=== PATIENT | female | born 1985 | race Caucasian/White ===

== ENCOUNTER 2016-08-10 23:04 | Emergency (ER) ==
[2016-08-10 23:31] VITALS: BP 148/87
[2016-08-11 00:03] LABS: MANUAL DIFF NEEDED? NO
[2016-08-11 00:15] LABS: BASO% 0.3 % (0.0-0.8); EOS# 0.29 X1000 (0.0-0.7); EOS% 2.2 % (0.0-10.0); HEMATOCRIT 39.1 % (37.0-47.0); HEMOGLOBIN 13.9 g/dL (12.0-16.0); IMM GRAN# 0.02 X1000 (0.0-0.04); IMM GRAN% 0.2 % (0.0-0.5); LYMPH# 2.71 X1000 (1.2-3.4); LYMPH% 20.6 % (20.5-51.1); MCH 32.4 PG (27-31); MCHC 35.5 g/dL (33-37); MCV 91.1 FL (81-99); MONO# 1.01 X1000 (0.11-0.59); MONO% 7.7 % (1.7-9.3); MPV 10.5 FL (7.4-10.4); PLT 346 X1000 (130-400); RBC 4.29 XMIL (4.2-5.4)
[2016-08-11] MEDS ORDERED: PHENERGAN IM ONE (00:17)
[2016-08-11] MEDS ORDERED: ATIVAN IM ONE (00:17)
[2016-08-11] MEDS ORDERED: DILAUDID IM ONE (00:17)
--- NOTE | 2016-08-11 00:22 | PROVIDER DOCUMENTATION ---
HPI-General Adult - General Chief Complaint: Weakness Stated Complaint: GALLSTONE SX Time Seen by Provider: 08/10/16 23:36 Allergies/Adverse Reactions: Patient Allergies Allergy/AdvReac Type Severity Reaction Status Date / Time No Known Allergies Allergy Verified 07/30/16 20:22 Home Medications: Venlafaxine E.r. [Effexor Xr] 75 mg PO DAILY 06/20/16 Erythromycin Base [Erythromycin] 250 mg PO TID 07/28/16 - History of Present Illness -Gen Adult Nature of Presenting Problems: 31 YOWF PRESENTS TO ED WITH C/O PT STATES RUQ TENDERNESS. PT STATES 1 EPISODE OF VOMITING LAST NIGHT. PT STATES SHE HAS A COUGH. PT STATES SHE FEELS BAD AND APPEARS MILDLY ANXIOUS. Location of Pain/Injury: reports: abdomen Pain Radiation: reports: no radiation Quality of Pain: reports: aching Severity: reports: mild Onset/Duration: reports: 2 days ago Timing: reports: still present Context/Activities at Onset: reports: light activity Modifying Factors: improves with: nothing Similar Symptoms Previously?: Yes Recently seen or treated by another doctor?: Yes Review of Systems - Adult - REVIEW OF SYSTEMS - ADULT Constitutional: denies: chills, fever Cardiovascular: denies: chest pain, palpitations, syncope Respiratory: reports: cough. denies: shortness of breath, wheezing Gastrointestinal: reports: abdominal pain, nausea, vomiting. denies: diarrhea Musculoskeletal: denies: back pain, neck pain Neurological: denies: dizziness/vertigo, headache/migraines, syncope Past History - Adult - PAST MEDICAL HISTORY-ADULT Review of Records: reports: Nursing Assessment Review, Medications Reviewed Gastrointestinal: reports: other (gastroparesis) Psychiatric: reports: anxiety, depression - PRIOR SURGERIES/PROCEDURES Surgical/Procedure History: reports: hysterectomy (partial), BTL, other - IMMUNIZATION STATUS Childhood Immunizations: See Nurse Assessment Flu Vaccine: See Nurse Assessment - FAMILY HISTORY Family History: reviewed, not pertinent - SOCIAL HISTORY Smoking: cigarettes, less than 1 pack/day Provider spent 3-5 mins advising pt. on dangers of tobacco.: Discussed manners to quit use, and f/u contacts for add'l counseling. Substance Use: denies Alcohol Use Frequency: never Living Situation: family Physical Exam-General - CONSTITUTIONAL General Appearance: alert, mild distress - EYES Eyes: PERRL/EOMI, pink conjunctivae - HEAD, EARS, NOSE, MOUTH & THROAT HENMT: normocephalic/atraumatic, moist mucous membranes - NECK Neck: non-tender, full range of motion, supple - RESPIRATORY Respiratory: chest non-tender, lungs clear, normal breath sounds - CARDIOVASCULAR Cardiovascular: normal peripheral pulses, tachycardia - GASTROINTESTINAL (ABDOMEN) Abdominal Exam: normal bowel sounds, soft, tenderness (RUQ) - LYMPHATIC Lymphatic: no adenopathy - MUSCULOSKELETAL Back Exam: normal inspection, no CVA tenderness, no vertebral tenderness Extremity: normal range of motion, non-tender Departure - Departure Time of Disposition Order: 00:51 DIAGNOSIS: Biliary colic, Anxiety Disposition: HOME 01 Certified Medical Emergency: Emergent Condition: Stable Additional Instructions: ED Follow Up Instructions: You have been treated by a care provider in the Emergency Department. These instructions are being provided to you so you can have an understanding of how to care for yourself upon discharge. Upon discharge from the Emergency Department, you are responsible for making arrangements for follow-up care by a physician of your choice. Take all prescribed medications as directed. Return to the Emergency Department immediately for any new or worsening symptoms. You may call the Physician Referral phone number at [phone] to obtain a list of Physicians who are taking new patients. Attestation - Scribe Verification/Attestation Scribe:: Jorge Alberto Hsieh Acting as Scribe for:: Neal Teresa Scribe documention review:: This chart was documented by a scribe and accurately reflects the service the provider performed and the decisions made by the provider.
[2016-08-11 00:43] LABS: AGAP 11; ALBUMIN 4.6 g/dL (3.5-5.0); ALKALINE PHOSPHATASE 70 U/L (32-104); BUN 7 mg/dL (8-22); CALCIUM 9.4 mg/dL (8.8-10.2); CHLORIDE 102 mmol/L (98-107); COSMO 275; GOT 11 U/L (10-30); GPT 12 U/L (10-36); LIPASE 22 U/L (13-60); POTASSIUM 3.7 mmol/L (3.5-5.1); SODIUM 139 mmol/L (136-145); TCO2 26 mmol/L (25-35); TOTAL PROTEIN 7.7 g/dL (6.3-8.3)
== END 2016-08-11 01:17 | disposition home or self-care (01) ==
LOC: P.ED 23:04
DX: K80.50 Calculus of bile duct without cholangitis or cholecystitis without obstruction (principal); F41.9 Anxiety disorder, unspecified; R10.11 Right upper quadrant pain; R00.0 Tachycardia, unspecified; R11.2 Nausea with vomiting, unspecified; R05 Cough; K31.84 Gastroparesis; F32.9 Major depressive disorder, single episode, unspecified; F17.210 Nicotine dependence, cigarettes, uncomplicated; Z71.6 Tobacco abuse counseling; Z79.899 Other long term (current) drug therapy
CPT/HCPCS: 80053; 83690; 85025; 96372; J1170; J2060; J2550

== ENCOUNTER 2016-08-13 11:25 | Emergency (ER) ==
--- NOTE | 2016-08-13 12:52 | PROVIDER DOCUMENTATION ---
HPI-Cardiac General <Tania EngleTiffany - Last Filed: 08/13/16 12:52> - General Source: patient - History of Present Illness-Cardiac Quality of Pain: reports: none Severity in ED: moderate Onset/Duration: 24 hours ago Timing: still present Palpitation Quality: fast/pounding heart beat Similar Symptoms Previously?: Yes Recently Seen Here or By Another Healthcare Provider: Yes <Vladimir Serna - Last Filed: 08/13/16 14:15> - General Chief Complaint: Palpitations Stated Complaint: ABD PAIN/PALPITATION Time Seen by Provider: 08/13/16 12:51 Allergies/Adverse Reactions: Patient Allergies Allergy/AdvReac Type Severity Reaction Status Date / Time No Known Allergies Allergy Verified 07/30/16 20:22 Home Medications: Venlafaxine E.r. [Effexor Xr] 75 mg PO DAILY 06/20/16 Erythromycin Base [Erythromycin] 250 mg PO TID 07/28/16 - History of Present Illness-Cardiac Nature of Presenting Problem: Reports having gallbladder surgery on Thursday and states continues to feel a fluttering in her chest reports she thinks it correlates with the gallbladder states she is nervous about the surgery. Reports has pain medication but doesn' t take it. Reports has had an EKG,STress test and wore a halter monitor with all negative results. Mel arvizu,n,v,d,sob. (Vladimir Serna) Review of Systems - Adult - REVIEW OF SYSTEMS - ADULT Constitutional: denies: chills, fever, fatique Eyes: reports: no symptoms reported Ears, Nose, Mouth & Throat: reports: no symptoms reported Cardiovascular: reports: palpitations. denies: chest pain, irregular heart rate , orthopnea, PND, syncope Respiratory: denies: cough, shortness of breath, wheezing Gastrointestinal: reports: no symptoms reported Genitourinary: reports: no symptoms reported Musculoskeletal: reports: no symptoms reported Integumentary: reports: no symptoms reported Neurological: reports: no symptoms reported Psychiatric: reports: no symptoms reported Endocrine: reports: no symptoms reported Hematologic/Lymphatic: reports: no symptoms reported Allergic/Immunologic: reports: no symptoms reported All Other Systems: Reviewed and Negative <Vladimir Serna - Last Filed: 08/13/16 14:15> Past History - Adult - PAST MEDICAL HISTORY-ADULT Gastrointestinal: reports: other (gastroparesis) Psychiatric: reports: anxiety, depression - PRIOR SURGERIES/PROCEDURES Surgical/Procedure History: reports: hysterectomy (partial), BTL, other - IMMUNIZATION STATUS Childhood Immunizations: See Nurse Assessment Flu Vaccine: See Nurse Assessment - FAMILY HISTORY Family History: reviewed, not pertinent <Tania Engle - Last Filed: 08/13/16 12:52> - PAST MEDICAL HISTORY-ADULT Review of Records: reports: Nursing Assessment Review Major Childhood Illnesses: reports: denies history Cardiovascular: reports: denies history Respiratory: reports: denies history Gastrointestinal: reports: other (gastroparesis) Psychiatric: reports: depression - PRIOR SURGERIES/PROCEDURES Surgical/Procedure History: reports: hysterectomy, BTL - IMMUNIZATION STATUS Childhood Immunizations: See Nurse Assessment Flu Vaccine: See Nurse Assessment - FAMILY HISTORY Family History: reviewed, not pertinent - SOCIAL HISTORY Smoking: cigarettes, less than 1 pack/day Provider spent 3-5 mins advising pt. on dangers of tobacco.: Discussed manners to quit use, and f/u contacts for add'l counseling. Substance Use: none/never <Vladimir Serna - Last Filed: 08/13/16 14:15> Physical Exam-General - PHYSICAL EXAM-ADULT Initial Vital Signs Reviewed: Yes - CONSTITUTIONAL General Appearance: appears well, alert, no apparent distress, anxious - EYES Eyes: PERRL/EOMI, pink conjunctivae - HEAD, EARS, NOSE, MOUTH & THROAT HENMT: normocephalic/atraumatic, moist mucous membranes, normal ENT inspection - NECK Neck: non-tender, full range of motion, normal inspection - RESPIRATORY Respiratory: chest non-tender, lungs clear, normal breath sounds - CARDIOVASCULAR Cardiovascular: normal peripheral pulses, regular rate, rhythm, no edema - GASTROINTESTINAL (ABDOMEN) Abdominal Exam: normal bowel sounds, non tender, soft - LYMPHATIC Lymphatic: no adenopathy - MUSCULOSKELETAL Back Exam: normal inspection, no CVA tenderness, no vertebral tenderness Extremity: normal range of motion, non-tender, normal gait - SKIN Integumentary: normal color, normal turgor, warm/dry - NEUROLOGIC Neurologic: grossly normal, no motor/sensory deficits - PSYCHIATRIC Psych/Mental Status: normal thought content, normal thought process, oriented x 3, anxious <Vladimir Serna - Last Filed: 08/13/16 14:15> Progress <Tania Engle - Last Filed: 08/13/16 12:52> - EKG 1 Time of EKG reading by physician:: 12:32 EKG Read and Signed by:: Robert Rhoades EKG Interpretation (*Must complete 3 of following elements*): Abnormal Rate: 103 Rhythm: sinus tachy [place]: normal QRS: normal [place] Interval: normal ST Wave: normal <Vladimir Serna - Last Filed: 08/13/16 14:15> - PLAN OF CARE/RESULTS Progress/Plan/Lab Results: MSE completed, stable (Tania Engle) Orders Category Date Time Status NPO Diet 08/13/16 12:10 Active AMYLASE [CHEM] Stat Lab 08/13/16 13:00 Completed CBC WITH ELECTRONIC DIFF [HEME] Stat Lab 08/13/16 13:00 Completed COMPREHENSIVE METABOLIC PANEL [CHEM] Stat Lab 08/13/16 13:00 Completed LIPASE [CHEM] Stat Lab 08/13/16 13:00 Completed TEST-URINE [PREG] Stat Lab 08/13/16 12:[address] W/POSS RFLX CULT [URINALYSIS] Stat Lab 08/13/16 12:53 Completed URINE CULTURE [RM] Routine Lab 08/13/16 13:35 Ordered EKG [EKG] Stat Ther 08/13/16 11:33 Draft Vital Signs - 24 hr 08/13/16 08/13/16 11:30 12:44 Temperature 97.8 F 97.4 F L Pulse Rate 99 H 92 H Respiratory 18 16 Rate Blood Pressure 130/69 126/74 O2 Sat by Pulse 100 96 Oximetry Laboratory Tests 08/13/16 08/13/16 08/13/16 12:53 12:53 13:00 WBC RBC Hgb Hct MCV MCH MCHC RDW Std Deviation Plt Count MPV Immature Gran % (Auto) Neut % (Auto) Lymph % (Auto) [place] % (Auto) Eos % (Auto) Baso % (Auto) Immature Gran # (Auto) Neut # (Auto) Lymph # (Auto) [place] # (Auto) Eos # (Auto) Baso # (Auto) Sodium 139 Potassium 3.9 Chloride 102 Carbon Dioxide 27 Anion Gap 10 BUN 8 Creatinine 0.9 Estimated GFR/1.73 m2 > 60 BUN/Creatinine Ratio 9 Glucose 103 Calculated Osmolality 276 Calcium 9.4 Total Bilirubin 0.60 AST 15 ALT 13 Alkaline Phosphatase 75 Total Protein 7.8 Albumin 4.5 Globulin 3.0 Albumin/Globulin Ratio 1.0 Amylase 34 Lipase 20 Urine Source CLEAN CATCH Urine Color YELLOW Urine Clarity SL. CLOUDY A Urine pH 6.5 Ur Specific [place] 1.010 Urine Protein NEGATIVE Urine Ketones NEGATIVE Urine Blood NEGATIVE Urine Nitrite NEGATIVE Urine Bilirubin NEGATIVE Urine Urobilinogen NORMAL Urine Microscopic RBC <10 Urine WBC NEGATIVE Urine Microscopic WBC <10 Ur Epithelial Cells >10 A Urine Bacteria 2+ Urine Glucose NEGATIVE Urine Test NEGATIVE 08/13/16 13:00 WBC 9.62 RBC 4.38 Hgb 14.0 Hct 40.1 MCV 91.6 MCH 32.0 H MCHC 34.9 RDW Std Deviation 12.1 Plt Count 396 MPV 10.1 Immature Gran % (Auto) 0.2 Neut % (Auto) 68.5 Lymph % (Auto) 21.4 [place] % (Auto) 6.4 Eos % (Auto) 2.9 Baso % (Auto) 0.6 Immature Gran # (Auto) 0.02 Neut # (Auto) 6.58 H Lymph # (Auto) 2.06 [place] # (Auto) 0.62 H Eos # (Auto) 0.28 Baso # (Auto) 0.06 Sodium Potassium Chloride Carbon Dioxide Anion Gap BUN Creatinine Estimated GFR/1.73 m2 BUN/Creatinine Ratio Glucose Calculated Osmolality Calcium Total Bilirubin AST ALT Alkaline Phosphatase Total Protein Albumin Globulin Albumin/Globulin Ratio Amylase Lipase Urine Source Urine Color Urine Clarity Urine pH Ur Specific [place] Urine Protein Urine Ketones Urine Blood Urine Nitrite Urine Bilirubin Urine Urobilinogen Urine Microscopic RBC Urine WBC Urine Microscopic WBC Ur Epithelial Cells Urine Bacteria Urine Glucose Urine Test (Vladimir Serna) Departure <Tania Engle - Last Filed: 08/13/16 12:52> - Departure Time of Disposition Order: 14:15 Certified Medical Emergency: Emergent <Vladimir Serna - Last Filed: 08/13/16 14:15> - Departure DIAGNOSIS: Palpitations, Anxiety Disposition: HOME 01 Condition: Stable Additional Instructions: ED Follow Up Instructions: You have been treated by a care provider in the Emergency Department. These instructions are being provided to you so you can have an understanding of how to care for yourself upon discharge. Upon discharge from the Emergency Department, you are responsible for making arrangements for follow-up care by a physician of your choice. Take all prescribed medications as directed. Return to the Emergency Department immediately for any new or worsening symptoms. You may call the Physician Referral phone number at [phone] to obtain a list of Physicians who are taking new patients. Attestation - Physician/ Mid-level Attestation Patient care was provided by Mid-level provider (HUMAN RESOURCES OFFICE MANAGER/PA):: Yes Mid-level provider:: Tania Engle Mid-level documentation review:: The Mid-level provider documentation, treatment plan and medical decision making was reviewed by the physician who agrees with all treatment and medical decision making by the MLP. <Tania Engle - Last Filed: 08/13/16 12:52> - Scribe Verification/Attestation Scribe:: Vladimir Serna Acting as Scribe for:: Robert Rhoades Scribe documention review:: This chart was documented by a scribe and accurately reflects the service the provider performed and the decisions made by the provider. <Vladimir Serna - Last Filed: 08/13/16 14:15> Physician Attestation
[2016-08-13 13:00] LABS: URINE SOURCE CLEAN CATCH
[2016-08-13 13:03] LABS: MANUAL DIFF NEEDED? NO
[2016-08-13 13:10] LABS: BASO% 0.6 % (0.0-0.8); EOS# 0.28 X1000 (0.0-0.7); EOS% 2.9 % (0.0-10.0); HEMATOCRIT 40.1 % (37.0-47.0); IMM GRAN# 0.02 X1000 (0.0-0.04); IMM GRAN% 0.2 % (0.0-0.5); LYMPH# 2.06 X1000 (1.2-3.4); LYMPH% 21.4 % (20.5-51.1); MCHC 34.9 g/dL (33-37); MCV 91.6 FL (81-99); MONO# 0.62 X1000 (0.11-0.59); MONO% 6.4 % (1.7-9.3); MPV 10.1 FL (7.4-10.4); NEUT% 68.5 % (42.2-75.2); PLT 396 X1000 (130-400); RBC 4.38 XMIL (4.2-5.4)
--- NOTE | 2016-08-13 13:12 | EKG Report ---
Test Performed on : 08/13/2016 12:32:20 PM Test Reason : PALP Blood Pressure : / mmHG Vent. Rate : 103 BPM Atrial Rate : 103 BPM P-R Int : 150 ms QRS Dur : 074 ms QT Int : 322 ms P-R-T Axes : 071 070 057 degrees QTc Int : 421 ms Sinus tachycardia. Otherwise normal ECG When compared with ECG of 03-AUG-2016 16:56, No significant change was found Unconfirmed Result
[2016-08-13 13:28] LABS: BILIRUBIN URINE NEGATIVE (NEGATIVE); BLOOD URINE NEGATIVE (NEGATIVE); CLARITY SL. CLOUDY (CLEAR); COLOR YELLOW; GLUCOSE URINE NEGATIVE (NEGATIVE); LEUKOCYTES URINE NEGATIVE (NEGATIVE); NITRITE URINE NEGATIVE (NEGATIVE); PH URINE 6.5; PROTEIN URINE NEGATIVE (NEGATIVE); UROBILINOGEN URINE NORMAL
[2016-08-13 13:35] LABS: URINE CULTURE PL NEEDED? YES; URINE EPITHELIAL CELLS >10 /HPF (<10); URINE RBC <10 /HPF (<10); URINE WBC <10 /HPF (<10)
[2016-08-13 13:35] LABS: AGAP 10; ALBUMIN 4.5 g/dL (3.5-5.0); ALKALINE PHOSPHATASE 75 U/L (32-104); AMYLASE 34 U/L (20-200); BUN 8 mg/dL (8-22); CALCIUM 9.4 mg/dL (8.8-10.2); CHLORIDE 102 mmol/L (98-107); COSMO 276; GOT 15 U/L (10-30); GPT 13 U/L (10-36); LIPASE 20 U/L (13-60); POTASSIUM 3.9 mmol/L (3.5-5.1); SODIUM 139 mmol/L (136-145); TCO2 27 mmol/L (25-35); TOTAL PROTEIN 7.8 g/dL (6.3-8.3)
[2016-08-13 14:44] VITALS: BP 112/78
== END 2016-08-13 14:45 | disposition home or self-care (01) ==
LOC: P.ED 11:25
DX: R00.2 Palpitations (principal); F41.9 Anxiety disorder, unspecified; R94.31 Abnormal electrocardiogram [ECG] [EKG]; F32.9 Major depressive disorder, single episode, unspecified; K31.84 Gastroparesis; F17.210 Nicotine dependence, cigarettes, uncomplicated; Z71.6 Tobacco abuse counseling; Z79.899 Other long term (current) drug therapy
CPT/HCPCS: 36415; 80053; 81001; 81025; 82150; 83690; 85025; 87088; 93005; 99283

== ENCOUNTER 2016-08-14 13:48 | Emergency (ER) ==
[2016-08-14 14:00] LABS: MANUAL DIFF NEEDED? NO
[2016-08-14 14:06] LABS: BASO% 0.5 % (0.0-0.8); EOS# 0.23 X1000 (0.0-0.7); EOS% 2.2 % (0.0-10.0); HEMATOCRIT 39.3 % (37.0-47.0); LYMPH# 2.84 X1000 (1.2-3.4); LYMPH% 27.4 % (20.5-51.1); MCH 32.6 PG (27-31); MCHC 35.6 g/dL (33-37); MCV 91.4 FL (81-99); MONO# 0.63 X1000 (0.11-0.59); MONO% 6.1 % (1.7-9.3); MPV 10.2 FL (7.4-10.4); NEUT% 63.8 % (42.2-75.2); PLT 424 X1000 (130-400)
[2016-08-14 14:21] LABS: AGAP 14; ALBUMIN 4.5 g/dL (3.5-5.0); ALKALINE PHOSPHATASE 71 U/L (32-104); AMYLASE 31 U/L (20-200); BUN 11 mg/dL (8-22); CALCIUM 9.3 mg/dL (8.8-10.2); CHLORIDE 90 mmol/L (98-107); COSMO 255; GOT 12 U/L (10-30); GPT 15 U/L (10-36); LIPASE 20 U/L (13-60); POTASSIUM 3.2 mmol/L (3.5-5.1); SODIUM 127 mmol/L (136-145); TCO2 23 mmol/L (25-35); TOTAL BILIRUBIN 0.79 mg/dL (0.20-1.00); TOTAL PROTEIN 7.7 g/dL (6.3-8.3)
--- NOTE | 2016-08-14 14:35 | PROVIDER DOCUMENTATION ---
HPI-General Adult - General Chief Complaint: Nausea/Vomiting Stated Complaint: NAUSEA/VOMITING Time Seen by Provider: 08/14/16 14:23 Source: patient Allergies/Adverse Reactions: Patient Allergies Allergy/AdvReac Type Severity Reaction Status Date / Time No Known Allergies Allergy Verified 07/30/16 20:22 Home Medications: Venlafaxine E.r. [Effexor Xr] 75 mg PO DAILY 06/20/16 Erythromycin Base [Erythromycin] 250 mg PO TID 07/28/16 - History of Present Illness -Gen Adult Nature of Presenting Problems: 31 y/o F presents to ED cc of "unwell " feeling. Pt states she has been laying in bed all day today due to nausea/ low grade fever and some chills and being unable to eat. Pt denies any pain. States "she just feels sick". Pt states she feels like her HR has been racing. On exam pt is tearful. Pt states she is scheduled to have her gallbladder out tomorrow. Pt also states she is concerned with L leg twitching x 2 days. Pt complaining of mild cough onset this past weekend. Location of Pain/Injury: reports: none Pain Radiation: reports: no radiation Quality of Pain: reports: none Severity: reports: mild Onset/Duration: reports: 2 days ago Timing: reports: still present Context/Activities at Onset: reports: light activity Modifying Factors: improves with: nothing Associated Symptoms: reports: fever/chills, nausea, vomiting, other ("unwell feeling, feels sick"). denies: chest pain, shortness of breath Similar Symptoms Previously?: No Recently seen or treated by another doctor?: No Review of Systems - Adult - REVIEW OF SYSTEMS - ADULT Constitutional: reports: chills, fever Eyes: reports: no symptoms reported Ears, Nose, Mouth & Throat: reports: no symptoms reported Cardiovascular: reports: other (feeling of heart racing). denies: chest pain Respiratory: reports: cough (mild this past weekend). denies: shortness of breath Gastrointestinal: reports: nausea, vomiting. denies: abdominal pain, diarrhea Genitourinary: reports: no symptoms reported Musculoskeletal: denies: bone pain, back pain Integumentary: reports: no symptoms reported Neurological: denies: dizziness/vertigo, headache/migraines Psychiatric: reports: no symptoms reported Endocrine: reports: no symptoms reported Hematologic/Lymphatic: reports: no symptoms reported Allergic/Immunologic: reports: no symptoms reported All Other Systems: Reviewed and Negative Past History - Adult - PAST MEDICAL HISTORY-ADULT Review of Records: reports: Old Records Reviewed, Nursing Assessment Review Major Childhood Illnesses: reports: denies history Cardiovascular: reports: denies history Respiratory: reports: denies history Gastrointestinal: reports: other (gastroparesis) Psychiatric: reports: depression - PRIOR SURGERIES/PROCEDURES Surgical/Procedure History: reports: hysterectomy, BTL - IMMUNIZATION STATUS Childhood Immunizations: See Nurse Assessment Flu Vaccine: See Nurse Assessment - FAMILY HISTORY Family History: reviewed, not pertinent - SOCIAL HISTORY Smoking: greater than 1 pack/day Provider spent 3-5 mins advising pt. on dangers of tobacco.: Discussed manners to quit use, and f/u contacts for add'l counseling. Substance Use: denies Physical Exam-General - PHYSICAL EXAM-ADULT Initial Vital Signs Reviewed: Yes - CONSTITUTIONAL General Appearance: appears well, alert, no apparent distress - EYES Eyes: PERRL/EOMI, pink conjunctivae - HEAD, EARS, NOSE, MOUTH & THROAT HENMT: normocephalic/atraumatic, moist mucous membranes, normal ENT inspection - NECK Neck: non-tender, full range of motion, normal inspection - RESPIRATORY Respiratory: chest non-tender, lungs clear, normal breath sounds - CARDIOVASCULAR Cardiovascular: normal peripheral pulses, no edema, tachycardia - GASTROINTESTINAL (ABDOMEN) Abdominal Exam: normal bowel sounds, non tender, soft - LYMPHATIC Lymphatic: no adenopathy - MUSCULOSKELETAL Back Exam: normal inspection, no CVA tenderness, no vertebral tenderness Extremity: normal range of motion, non-tender, normal gait - SKIN Integumentary: normal color, normal turgor, warm/dry - NEUROLOGIC Neurologic: grossly normal, no motor/sensory deficits - PSYCHIATRIC Psych/Mental Status: normal mood/affect, normal thought content, normal thought process, oriented x 3 Progress - PLAN OF CARE/RESULTS Progress/Plan/Lab Results: PLAN: LABS ON EXAM PT HAS REQUESTED A CHEST XRAY reads xray and talks to PT. Pt is now ready for discharged. Laboratory Tests 08/14/16 08/14/16 13:54 13:54 WBC 10.36 RBC 4.30 Hgb 14.0 Hct 39.3 MCV 91.4 MCH 32.6 H MCHC 35.6 RDW Std Deviation 12.1 Plt Count 424 H MPV 10.2 Immature Gran % (Auto) 0.0 Neut % (Auto) 63.8 Lymph % (Auto) 27.4 [place] % (Auto) 6.1 Eos % (Auto) 2.2 Baso % (Auto) 0.5 Immature Gran # (Auto) 0.00 Neut # (Auto) 6.61 H Lymph # (Auto) 2.84 [place] # (Auto) 0.63 H Eos # (Auto) 0.23 Baso # (Auto) 0.05 Sodium 127 L Potassium 3.2 L D Chloride 90 L Carbon Dioxide 23 L Anion Gap 14 BUN 11 Creatinine 1.0 H Estimated GFR/1.73 m2 > 60 BUN/Creatinine Ratio 11 Glucose 104 Calculated Osmolality 255 Calcium 9.3 Total Bilirubin 0.79 AST 12 ALT 15 Alkaline Phosphatase 71 Total Protein 7.7 Albumin 4.5 Globulin 3.2 Albumin/Globulin Ratio 1.4 Amylase 31 Lipase 20 Orders Category Date Time Status NPO Diet 08/14/16 13:53 Active CHEST-2 VIEWS [RAD] Stat Exams 08/14/16 14:41 Draft AMYLASE [CHEM] Stat Lab 08/14/16 13:54 Completed CBC WITH ELECTRONIC DIFF [HEME] Stat Lab 08/14/16 13:54 Completed COMPREHENSIVE METABOLIC PANEL [CHEM] Stat Lab 08/14/16 13:54 Completed LIPASE [CHEM] Stat Lab 08/14/16 13:54 Completed URINALYSIS W/POSS RFLX CULT [URINALYSIS] Stat Lab 08/14/16 13:53 Uncollected Potassium Chloride E.r. [Klor-Con] Med 08/14/16 14:44 Discontinued 40 meq PO NOW ONE Vital Signs - 24 hr 08/14/16 13:51 Temperature 97.6 F Pulse Rate 95 H Respiratory 18 Rate Blood Pressure 131/83 O2 Sat by Pulse 97 Oximetry - XRAY 1 XRAY: Bilateral XRAY Study: Chest Impression: Normal XRAY Interpretation: HA Jorge(radiologist) Departure - Departure Time of Disposition Order: 16:27 DIAGNOSIS: Anxiety Cholelithiasis Qualifiers: Cholelithiasis location: gallbladder Cholecystitis presence: with cholecystitis Cholecystitis acuity: unspecified acuity Biliary obstruction: without biliary obstruction Qualified Code(s): K80.00 - Calculus of gallbladder with acute cholecystitis without obstruction Disposition: HOME 01 Certified Medical Emergency: Emergent Condition: Stable Referrals: Angela Bautista [Primary Care Provider] - Attestation - Scribe Verification/Attestation Scribe:: Shannon Vázquez Acting as Scribe for:: Javid Rowley Scribe documention review:: This chart was documented by a scribe and accurately reflects the service the provider performed and the decisions made by the provider.
[2016-08-14] MEDS ORDERED: KLOR-CON PO ONE (14:44)
--- NOTE | 2016-08-14 15:44 | Diag Imaging Result Document ---
PROCEDURE NAME: CHEST-2 VIEWS - 08/14/2016 TWO VIEWS OF THE CHEST: FINDINGS: Compared to 07/28/2016, there has been no significant change in the appearance of the chest. IMPRESSION: No acute disease.
[2016-08-14 17:38] VITALS: BP 166/82
== END 2016-08-14 17:37 | disposition home or self-care (01) ==
LOC: ED 13:48
DX: K80.00 Calculus of gallbladder with acute cholecystitis without obstruction (principal); F41.9 Anxiety disorder, unspecified; R11.2 Nausea with vomiting, unspecified; R50.9 Fever, unspecified; K31.84 Gastroparesis; R00.0 Tachycardia, unspecified; F32.9 Major depressive disorder, single episode, unspecified; F17.210 Nicotine dependence, cigarettes, uncomplicated; Z71.6 Tobacco abuse counseling; Z79.899 Other long term (current) drug therapy
CPT/HCPCS: 71020; 80053; 82150; 83690; 85025; 99283

== ENCOUNTER 2016-10-09 16:02 | Emergency (ER) ==
--- NOTE | 2016-10-09 18:19 | PROVIDER DOCUMENTATION ---
HPI-General Adult - General Source: patient - History of Present Illness -Gen Adult Nature of Presenting Problems: 31 year old F presents to the ED with a cc of burning in her throat, chest, head , neck, and back with an onset of this afternoon. PT states that she was at home playing with her kids at onset. Pt denies anything new. Pt states that she has been started on Buspar for anxiety. Pt states that she has stomach problems and had an EGD done a few weeks ago. Location of Pain/Injury: reports: head, face, neck, chest, back Quality of Pain: reports: burning Severity: reports: mild Onset/Duration: reports: this afternoon Timing: reports: still present Modifying Factors: improves with: nothing Similar Symptoms Previously?: No Recently seen or treated by another doctor?: Yes <Madeline Granado - Last Filed: 10/09/16 18:19> <Yanci Worley - Last Filed: 10/09/16 19:15> - General Chief Complaint: Anxiety Stated Complaint: RASH Time Seen by Provider: 10/09/16 17:46 Allergies/Adverse Reactions: Patient Allergies Allergy/AdvReac Type Severity Reaction Status Date / Time hydroxyzine Allergy Severe ANAPHYLAXIS Verified 09/20/16 09:07 hydrocodone Allergy Intermediate SHORTNESS Verified 09/20/16 09:07 OF BREATH Home Medications: Home Medication List Medication Instructions Recorded Confirmed Last Taken Type Buspirone [Buspar] 15 mg PO BID 10/09/16 10/09/16 10/08/16 History Review of Systems - Adult - REVIEW OF SYSTEMS - ADULT Constitutional: denies: chills, fever Eyes: reports: no symptoms reported Ears, Nose, Mouth & Throat: reports: throat pain. denies: throat swelling Cardiovascular: reports: no symptoms reported Respiratory: denies: cough, shortness of breath Gastrointestinal: denies: nausea, vomiting Genitourinary: reports: no symptoms reported Musculoskeletal: reports: no symptoms reported Integumentary: denies: skin sores/ulcer, skin thickening Neurological: denies: dizziness/vertigo, headache/migraines Psychiatric: reports: no symptoms reported Endocrine: reports: no symptoms reported Hematologic/Lymphatic: reports: no symptoms reported Allergic/Immunologic: reports: no symptoms reported All Other Systems: Reviewed and Negative <Madeline Granado - Last Filed: 10/09/16 18:19> Past History - Adult - PAST MEDICAL HISTORY-ADULT Review of Records: reports: Nursing Assessment Review, Medications Reviewed Major Childhood Illnesses: reports: denies history Gastrointestinal: reports: GERD, IBS, other (esophogitis, gastritis, gastroparesis, interstital cystitis). denies: GI bleed Psychiatric: reports: anxiety, depression - PRIOR SURGERIES/PROCEDURES Surgical/Procedure History: reports: cholecystectomy, hysterectomy, BTL - IMMUNIZATION STATUS Childhood Immunizations: See Nurse Assessment Flu Vaccine: See Nurse Assessment - SOCIAL HISTORY Smoking: non-smoker Substance Use: none/never Alcohol Use Frequency: never <Madeline Granado - Last Filed: 10/09/16 18:19> Physical Exam-General - PHYSICAL EXAM-ADULT Initial Vital Signs Reviewed: Yes - CONSTITUTIONAL General Appearance: appears well, alert, no apparent distress - RESPIRATORY Respiratory: chest non-tender, lungs clear, normal breath sounds - CARDIOVASCULAR Cardiovascular: normal peripheral pulses, regular rate, rhythm, no edema - MUSCULOSKELETAL Extremity: normal inspection - SKIN Integumentary: normal color, normal turgor, warm/dry - PSYCHIATRIC Psych/Mental Status: normal mood/affect, normal thought content, normal thought process, oriented x 3 <Madeline Granado - Last Filed: 10/09/16 18:19> Progress - PLAN OF CARE/RESULTS Progress/Plan/Lab Results: Patient reports she was seen by an ENT in [place] today. she reports he told her that her problems were probably stomach related and was going to refer her back to her [employer]. Patient reports that her PCP wants her to follow -up with a Neurologist, she states "She is not sure why", she reports she is currently waiting on the ENT to refer her to a GI specialist in [place]. Orders Category Date Time Status Lido/Madsen Alk/Al&mg Hydrox [G.i. Cocktail] Med 10/09/16 18:41 Discontinued 30 ml PO NOW ONE EKG [EKG] Stat Ther 10/09/16 18:41 Ordered Last Vital Signs Temp 97.7 F 10/09/16 16:06 Pulse 90 10/09/16 16:06 Resp 20 10/09/16 16:06 BP 145/93 10/09/16 16:06 Pulse Ox 100 10/09/16 16:06 Allergies hydroxyzine Allergy (Severe, Verified 09/20/16 09:07) ANAPHYLAXIS hydrocodone Allergy (Intermediate, Verified 09/20/16 09:07) SHORTNESS OF BREATH Orders 10/09/16 18:41 EKG [EKG] Stat Vital Signs - 24 hr 10/09/16 16:06 Temperature 97.7 F Pulse Rate 90 Respiratory 20 Rate Blood Pressure 145/93 O2 Sat by Pulse 100 Oximetry <Yanci Worley - Last Filed: 10/09/16 19:15> Departure <Madeline Granado - Last Filed: 10/09/16 18:19> - Departure Time of Disposition Order: 18:40 Certified Medical Emergency: Emergent <Yanci Worley - Last Filed: 10/09/16 19:15> - Departure DIAGNOSIS: Chronic GERD Disposition: HOME 01 Condition: Stable Additional Instructions: ED Follow Up Instructions: You have been treated by a care provider in the Emergency Department. These instructions are being provided to you so you can have an understanding of how to care for yourself upon discharge. Upon discharge from the Emergency Department, you are responsible for making arrangements for follow-up care by a physician of your choice. Take all prescribed medications as directed. Return to the Emergency Department immediately for any new or worsening symptoms. You may call the Physician Referral phone number at [phone] to obtain a list of Physicians who are taking new patients. Referrals: None,PCP [Primary Care Provider] - Funmi Barksdale MD [STAFF PHYSICIAN] - Forms: Return to School/Parent Work Instructions: Generalized Anxiety Disorder Attestation - Scribe Verification/Attestation Scribe:: Madeline Granado Acting as Scribe for:: Yanci Worley Scribe documention review:: This chart was documented by a scribe and accurately reflects the service the provider performed and the decisions made by the provider. <Madeline Granado - Last Filed: 10/09/16 18:19> - Physician/ MAI Attestation Patient care was provided by Advanced Practice Provider:: Yes Advanced Practice Provider:: Yanci Worley Advanced Practice Provider documentation review:: The Mid-level provider documentation, treatment plan and medical decision making was reviewed by the physician who agrees with all treatment and medical decision making by the MLP. <Yanci Worley - Last Filed: 10/09/16 19:15> Physician Attestation - Physician Attestation I, the provider, attest to the following statement:: Yanci Worley Physician documentation Attestation:: This documentation recorded by the scribe accurately reflects the service I personally performed and the decisions made by me. <Madeline Granado - Last Filed: 10/09/16 18:19>
[2016-10-09] MEDS ORDERED: G.I. COCKTAIL PO ONE (18:41)
[2016-10-09 19:33] VITALS: BP 121/69
--- NOTE | 2016-10-09 21:07 | EKG Report ---
Test Performed on : 10/09/2016 6:55:38 PM Test Reason : throat burning Blood Pressure : / mmHG Vent. Rate : 079 BPM Atrial Rate : 079 BPM P-R Int : 170 ms QRS Dur : 078 ms QT Int : 352 ms P-R-T Axes : 029 030 026 degrees QTc Int : 403 ms Normal sinus rhythm. Normal ECG When compared with ECG of 11-SEP-2016 19:02, No significant change was found Unconfirmed Result
== END 2016-10-09 19:32 | disposition home or self-care (01) ==
LOC: P.ED 16:02
DX: K21.9 Gastro-esophageal reflux disease without esophagitis (principal); R20.8 Other disturbances of skin sensation; R07.0 Pain in throat; F41.9 Anxiety disorder, unspecified; F32.9 Major depressive disorder, single episode, unspecified; Z79.899 Other long term (current) drug therapy; R51 Headache; M54.2 Cervicalgia; R07.9 Chest pain, unspecified; M54.9 Dorsalgia, unspecified
CPT/HCPCS: 93005; 99282

== ENCOUNTER 2016-10-15 11:37 | Emergency (ER) ==
[2016-10-15 12:02] LABS: MANUAL DIFF NEEDED? NO
[2016-10-15 12:09] LABS: BASO% 0.2 % (0.0-0.8); EOS# 0.06 X1000 (0.0-0.7); EOS% 0.6 % (0.0-10.0); HEMATOCRIT 40.2 % (37.0-47.0); IMM GRAN# 0.02 X1000 (0.0-0.04); IMM GRAN% 0.2 % (0.0-0.5); LYMPH# 1.77 X1000 (1.2-3.4); LYMPH% 18.1 % (20.5-51.1); MCH 32.5 PG (27-31); MCHC 34.8 g/dL (33-37); MCV 93.3 FL (81-99); MONO# 0.38 X1000 (0.11-0.59); MONO% 3.9 % (1.7-9.3); MPV 10.2 FL (7.4-10.4); PLT 340 X1000 (130-400); RBC 4.31 XMIL (4.2-5.4)
[2016-10-15 12:43] LABS: URINE SOURCE CLEAN CATCH
[2016-10-15 12:44] LABS: AGAP 16; ALBUMIN 4.5 g/dL (3.5-5.0); ALKALINE PHOSPHATASE 58 U/L (32-104); AMYLASE 32 U/L (20-200); BUN 14 mg/dL (8-22); CALCIUM 9.3 mg/dL (8.8-10.2); CHLORIDE 96 mmol/L (98-107); COSMO 277; GOT 19 U/L (10-30); GPT 24 U/L (10-36); LIPASE 18 U/L (13-60); POTASSIUM 3.5 mmol/L (3.5-5.1); SODIUM 135 mmol/L (136-145); TCO2 23 mmol/L (25-35); TOTAL BILIRUBIN 0.53 mg/dL (0.20-1.00); TOTAL PROTEIN 7.4 g/dL (6.3-8.3)
[2016-10-15 12:48] LABS: BILIRUBIN URINE SMALL (NEGATIVE); BLOOD URINE SMALL (NEGATIVE); COLOR YELLOW; GLUCOSE URINE TRACE mg/dL (NEGATIVE); LEUKOCYTES URINE MODERATE (NEGATIVE); NITRITE URINE NEGATIVE (NEGATIVE); PROTEIN URINE 70 mg/dL (NEGATIVE); SP GRAVITY URINE 1.045; TURBIDITY URINE HAZY (CLEAR); UROBILINOGEN URINE 2 mg/dL (NORMAL)
[2016-10-15 12:49] LABS: URINE MICRO REVIEW NEEDED? YES
[2016-10-15 13:02] LABS: UR EPITHELIAL CELLS >10 /HPF (<10); URINE BACTERIA 4+ /HPF; URINE CULTURE NEEDED? YES; URINE RBC <10 /HPF (<10)
[2016-10-15 13:08] LABS: URINE CASTS NONE SEEN
--- NOTE | 2016-10-15 13:38 | PROVIDER DOCUMENTATION ---
HPI-Abdominal Pain/GI Problem - General Chief Complaint: Abdominal Pain Stated Complaint: SENT BY MD FOR EVEL Time Seen by Provider: 10/15/16 13:16 Source: patient Allergies/Adverse Reactions: Patient Allergies Allergy/AdvReac Type Severity Reaction Status Date / Time hydroxyzine Allergy Severe ANAPHYLAXIS Verified 10/15/16 15:18 hydrocodone Allergy Intermediate SHORTNESS Verified 10/15/16 15:18 OF BREATH Home Medications: Home Medication List Medication Instructions Recorded Confirmed Last Taken Type Ondansetron Odt [Zofran 4 mg Odt] 4 mg PO Q6H PRN PRN #20 tablet 10/15/16 Unknown Rx - History of Present Illness-ABD Nature of Presenting Problems: 31 y/o F with history of interstitial cystitis and gastroparesis presents with worsening central abdominal pain radiating to RUQ and back x 1.5 months. Pain is described as burning pain that "feels like fire". States when the symptoms began in May 2016 she was diagnosed with mild gastroparesis. Patient was admitted to [facility] for 2 days for same symptoms and was discharged yesterday with diagnosis of "inflammation in bowels" and a prescription for zantac. She has not taken the zantac because she drank water today and vomited it. She has not tried PO intake since. She has had four episodes of loose stools this morning. No hematemesis or hematochezia. Denies fever. She had the same symptoms on discharge yesterday but states she was tolerating water last night. She had follow up with GI, Dr. Bragg, at 11am today but came here instead because pain was so bad. Colonoscopy May 2016 was normal aside from hemorrhoids. Review of Systems - Adult - REVIEW OF SYSTEMS - ADULT Constitutional: reports: no symptoms reported. denies: chills, fever Eyes: reports: no symptoms reported Ears, Nose, Mouth & Throat: reports: no symptoms reported Cardiovascular: reports: no symptoms reported. denies: chest pain Respiratory: reports: no symptoms reported. denies: cough, shortness of breath , wheezing Gastrointestinal: reports: see HPI Genitourinary: reports: no symptoms reported. denies: dysuria, hematuria Musculoskeletal: reports: back pain. denies: muscle weakness, neck pain Integumentary: reports: no symptoms reported. denies: itching, rash Neurological: reports: no symptoms reported. denies: dizziness/vertigo, headache/migraines, numbness Psychiatric: reports: anxiety Endocrine: reports: no symptoms reported Hematologic/Lymphatic: reports: no symptoms reported Allergic/Immunologic: reports: no symptoms reported All Other Systems: Reviewed and Negative Past History - Adult - PAST MEDICAL HISTORY-ADULT Review of Records: reports: Nursing Assessment Review, Medications Reviewed Major Childhood Illnesses: reports: denies history Gastrointestinal: reports: GERD, IBS, other (esophogitis, gastritis, gastroparesis, interstital cystitis). denies: GI bleed Psychiatric: reports: anxiety, depression - PRIOR SURGERIES/PROCEDURES Surgical/Procedure History: reports: cholecystectomy, hysterectomy, BTL - IMMUNIZATION STATUS Childhood Immunizations: See Nurse Assessment Flu Vaccine: See Nurse Assessment Physical Exam-General - PHYSICAL EXAM-ADULT Initial Vital Signs Reviewed: Yes - CONSTITUTIONAL General Appearance: alert, anxious - EYES Eyes: PERRL/EOMI, pink conjunctivae - HEAD, EARS, NOSE, MOUTH & THROAT HENMT: normocephalic/atraumatic, moist mucous membranes - NECK Neck: non-tender, full range of motion, supple - RESPIRATORY Respiratory: chest non-tender, lungs clear, normal breath sounds, no pleuratic chest pain, no respiratory distress, no accessory muscle use - CARDIOVASCULAR Cardiovascular: normal peripheral pulses, regular rate, rhythm, no edema, no gallop, no JVD, no murmur - GASTROINTESTINAL (ABDOMEN) Abdominal Exam: tenderness (generalized) - MUSCULOSKELETAL Back Exam: normal inspection, no CVA tenderness Extremity: normal range of motion, non-tender, normal gait - SKIN Integumentary: normal color, normal turgor, warm/dry. negative: rash, zoster- like rash - NEUROLOGIC Neurologic: grossly normal, no motor/sensory deficits - PSYCHIATRIC Psych/Mental Status: normal mood/affect, normal thought content, normal thought process, oriented x 3 Progress - PLAN OF CARE/RESULTS Progress/Plan/Lab Results: Laboratory Tests 10/15/16 10/15/16 10/15/16 11:54 11:54 11:55 WBC 9.76 RBC 4.31 Hgb 14.0 Hct 40.2 MCV 93.3 MCH 32.5 H MCHC 34.8 RDW Std Deviation 12.4 Plt Count 340 MPV 10.2 Immature Gran % (Auto) 0.2 Neut % (Auto) 77.0 H Lymph % (Auto) 18.1 L Armstrong % (Auto) 3.9 Eos % (Auto) 0.6 Baso % (Auto) 0.2 Immature Gran # (Auto) 0.02 Neut # (Auto) 7.51 H Lymph # (Auto) 1.77 Armstrong # (Auto) 0.38 Eos # (Auto) 0.06 Baso # (Auto) 0.02 Sodium 135 L Potassium 3.5 Chloride 96 L Carbon Dioxide 23 L Anion Gap 16 BUN 14 Creatinine 0.9 Estimated GFR/1.73 m2 > 60 BUN/Creatinine Ratio 16 Glucose 209 H Calculated Osmolality 277 Calcium 9.3 Total Bilirubin 0.53 AST 19 ALT 24 Alkaline Phosphatase 58 Total Protein 7.4 Albumin 4.5 Globulin 2.9 Albumin/Globulin Ratio 1.6 Amylase 32 Lipase 18 Urine Source CLEAN CATCH Urine Color YELLOW Urine Turbidity HAZY Urine pH 6.0 Ur Specific [place] 1.045 Urine Protein 70 A Ur Glucose (Stick) TRACE Ur Ketones (Stick) 10 A Urine Blood SMALL A Urine Nitrite NEGATIVE Urine Bilirubin SMALL A Urobilinogen Dipstick 2 A Urine Leukocytes MODERATE A Urine WBC (Auto) 10-20 A Urine RBC (Auto) <10 U Epithel Cells (Auto) >10 A Urine Bacteria (Auto) 4+ Urine Crystals Not Reportable Small Round Cells Not Reportable Urine Casts NONE SEEN Urine Yeast-like Cells Not Reportable Urine Test 10/15/16 11:55 WBC RBC Hgb Hct MCV MCH MCHC RDW Std Deviation Plt Count MPV Immature Gran % (Auto) Neut % (Auto) Lymph % (Auto) Armstrong % (Auto) Eos % (Auto) Baso % (Auto) Immature Gran # (Auto) Neut # (Auto) Lymph # (Auto) Armstrong # (Auto) Eos # (Auto) Baso # (Auto) Sodium Potassium Chloride Carbon Dioxide Anion Gap BUN Creatinine Estimated GFR/1.73 m2 BUN/Creatinine Ratio Glucose Calculated Osmolality Calcium Total Bilirubin AST ALT Alkaline Phosphatase Total Protein Albumin Globulin Albumin/Globulin Ratio Amylase Lipase Urine Source Urine Color Urine Turbidity Urine pH Ur Specific [place] Urine Protein Ur Glucose (Stick) Ur Ketones (Stick) Urine Blood Urine Nitrite Urine Bilirubin Urobilinogen Dipstick Urine Leukocytes Urine WBC (Auto) Urine RBC (Auto) U Epithel Cells (Auto) Urine Bacteria (Auto) Urine Crystals Small Round Cells Urine Casts Urine Yeast-like Cells Urine Test NEGATIVE Labs reviewed and unremarkable. Reviewed CT scan and US from yesterday which only show bowel wall thickening in the transverse colon. Patient is mildly tachycardic, but otherwise VS normal. Plan to give fluids, symptomatic treatment and contact Dr. Bragg. Patient sent back to as there are no beds available currently. Patient instructed to notify assigner for any change in condition. - REASSESSMENT Reassessment #1 Time Reassessed: 17:02 (Patient's symptoms improved with treatment. No vomiting in ER. HR improved. Discussed with Dr. Rowley. Will discharge pt home with zofran and to continue home meds including zantac. Patient to follow up with Dr. Holder.) Status: improving - CONSULTS/PCP/HOSPITALIST Notification #1 *Consult/PCP/Hospitalist*: Dr. Bragg Time Discussed: 16:55 (Dr. Bragg is no longer seeing this patient and her care has been transferred to Dr. Holder.) Departure - Departure Time of Disposition Order: 16:58 DIAGNOSIS: Chronic abdominal pain Disposition: HOME 01 Certified Medical Emergency: Emergent Condition: Good Additional Instructions: Follow up with Dr. Holder regarding chronic abdominal pain. ED Follow Up Instructions: You have been treated by a care provider in the Emergency Department. These instructions are being provided to you so you can have an understanding of how to care for yourself upon discharge. Upon discharge from the Emergency Department, you are responsible for making arrangements for follow-up care by a physician of your choice. Take all prescribed medications as directed. Return to the Emergency Department immediately for any new or worsening symptoms. You may call the Physician Referral phone number at [phone] to obtain a list of Physicians who are taking new patients. Prescriptions: Ondansetron Odt [Zofran 4 mg Odt] 4 mg PO Q6H PRN PRN #20 tablet PRN Reason: nausea, vomiting Referrals: Verna Bragg MD [Primary Care Provider] - Peggy Holder MD [STAFF PHYSICIAN] - Attestation - Physician/ MAI Attestation Patient care was provided by Advanced Practice Provider:: Yes Advanced Practice Provider:: Hansa Ramos Advanced Practice Provider documentation review:: The Mid-level provider documentation, treatment plan and medical decision making was reviewed by the physician who agrees with all treatment and medical decision making by the P.
[2016-10-15] MEDS ORDERED: NS 1,000 ML IV ONE (14:12)
[2016-10-15] MEDS ORDERED: G.I. COCKTAIL PO ONE (14:17)
[2016-10-15] MEDS ORDERED: ZOFRAN IV ONE (14:17)
[2016-10-15] MEDS ORDERED: PROTONIX IV ONE (16:42)
[2016-10-15] MEDS ORDERED: SODIUM CHLORIDE 0.9% INJ ONE (16:42)
[2016-10-15 17:36] VITALS: BP 131/59
== END 2016-10-15 18:00 | disposition home or self-care (01) ==
LOC: ED 11:37
DX: R10.11 Right upper quadrant pain (principal); G89.29 Other chronic pain; M54.9 Dorsalgia, unspecified; K21.9 Gastro-esophageal reflux disease without esophagitis; K58.9 Irritable bowel syndrome, unspecified; N30.10 Interstitial cystitis (chronic) without hematuria; K31.84 Gastroparesis; F41.9 Anxiety disorder, unspecified; F32.9 Major depressive disorder, single episode, unspecified
CPT/HCPCS: 80053; 81001; 81025; 82150; 83690; 85025; 87088; C9113; J2405; J7030; S0164